=== PATIENT | male | born 1985 | race Caucasian/White ===

== ENCOUNTER 2017-04-12 15:15 | Emergency (ER) | payer BC, OTHER ==
[~2017-04-12] VITALS: Ht 177.8 cm; Wt 95.0 kg
[2017-04-12 15:20] VITALS: Ht 177.8 cm; Wt 95.0 kg
[2017-04-12] MEDS ORDERED: KETOROLAC 60 MG INJ IM STA (16:54)
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
[2017-04-12] MEDS ORDERED: HYDR-906 PO (17:41)
[2017-04-12] MEDS ORDERED: IBUP-1542 PO (17:41)
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
== END 2017-04-12 17:55 | disposition home or self-care (01) ==
LOC: FTE 15:15
DX: S39.92XA Unspecified injury of lower back, initial encounter (principal); S16.1XXA Strain of muscle, fascia and tendon at neck level, initial encounter; I10 Essential (primary) hypertension; V43.52XA Car driver injured in collision with other type car in traffic accident, initial encounter
CPT/HCPCS: 72040; 72100; 96372; 99284; J1885